=== PATIENT | female | born 1945 | race Caucasian/White ===

== ENCOUNTER 2022-09-27 12:09 | Outpatient (OUT) | payer MEDICARE, SELFPAY ==
--- NOTE | 2022-09-27 14:07 | PM.CN ---
Consult Note: HPI Data of Consult Patient: known to practice within the last 3 years Consult date: 09/27/22 Requesting Physician: James Kwong MD Primary Care Provider: Non-Staff Physician, Consult Narrative Reason for consult: Right low back pain Narrative: this is a pleasant 77-year-old female who presents for assessment. She is doing very well after her spinal cord stimulator implantation, and she reports approximately ninety percent improvement. She does continue to have some pain on the right side, but she is working with the spinal cord stimulator representatives to try to cover this area more. She continues to stay active at home. She otherwise denies adverse medication side effects or loss of bowel or bladder control. cc:: CC: James Kwong MD Review of Systems ROS Status of ROS 10 or more systems reviewed and unremarkable except as noted in history and below Exam Constitutional Common normals: no apparent distress, oriented x3 and healthy appearing Respiratory Common normals: normal respiratory effort Effort & inspection: able to speak in complete sentences Back & Pelvis Other: tenderness to palpation through the lumbar spine and paraspinal musculature. Pain is mildly elicited with flexion and extension of the lumbar spine. Coordination remains intact. Gait remains nonantalgic. Extremity Common normals: normal to inspection Neuro Common normals: oriented x3, CN's II-XII intact bilaterally and no focal motor deficits Psych Common normals: mental status grossly normal and cooperative Assessment and Plan Assessment and Plan (1) Lumbar postlaminectomy syndrome: (2) Lumbar spondylosis: (3) Lumbar stenosis with neurogenic claudication: Plan this is a pleasant 77-year-old female who presents for assessment. I am by that she is doing well after her recent lumbar spinal cord stimulator implantation. She does note some persistence of right-sided low back pain, but she had her spinal cord stimulator settings adjusted today to try to help more with his pain. We will see how these settings workout for her. Medications were reviewed, and no changes were made at this time. Her incisions are healing nicely. Her postoperative bruising has resolved entirely. She will follow-up as needed.
== END 2022-09-27 12:10 | disposition home or self-care (01) ==
LOC: PM 12:10
PROVIDERS: Visit Provider Anesthesiology
DX: M47.816 Spondylosis without myelopathy or radiculopathy, lumbar region (principal); M96.1 Postlaminectomy syndrome, not elsewhere classified; M48.062 Spinal stenosis, lumbar region with neurogenic claudication
CPT/HCPCS: G0463

== ENCOUNTER 2023-05-09 14:21 | Outpatient (OUT) | payer MEDICARE, SELFPAY ==
--- NOTE | 2023-05-09 15:10 | P.CN_ITS ---
Consult Note: HPI Data of Consult Patient: known to practice within the last 3 years Consult date: 05/09/23 Requesting Physician: James Kwong MD Primary Care Provider: Non-Staff Physician, Consult Narrative Reason for consult: right low back and leg pain Narrative: 77yof who presents for assessment. worsening right sided low back pain. has scs in place, which covers left sided pain well. was using medical marijuana, but states that she stopped since this was not helping. continues in provider directed home exercise program >6 weeks. denies adverse med side effects. cc:: CC: James Kwong MD Review of Systems ROS Status of ROS 10 or more systems reviewed and unremark able except as noted in history and below Meds Home Medications and Allergies Home Medications ?Medication ?Instructions ?Recorded ?Confirmed ?Type atorvastatin 40 mg tablet 40 mg PO DAILY 10/01/22 10/01/22 History bupropion HCl 150 mg 24 hr tablet, 150 mg PO DAILY 10/01/22 10/01/22 History extended release (Wellbutrin XL) furosemide 40 mg tablet 40 mg PO DAILY 10/01/22 10/01/22 History ibandronate 150 mg tablet mg PO .MONTHLY 10/01/22 History metformin 500 mg tablet 500 mg PO BID 10/01/22 10/01/22 History montelukast 10 mg tablet 10 mg PO DAILY 10/01/22 10/01/22 History potassium chloride 20 mEq 20 meq PO DAILY 10/01/22 10/01/22 History tablet,extended release quetiapine 400 mg tablet (Seroquel) 400 mg PO DAILY 10/01/22 10/01/22 History topiramate 50 mg tablet 50 mg PO BID 10/01/22 10/01/22 History trazodone 150 mg tablet 200 mg PO DAILY 10/01/22 10/01/22 History ziprasidone HCl 60 mg capsule 60 mg PO BID 10/01/22 10/01/22 History Allergies Allergy/AdvReac Type Severity Reaction Status Date / Time diphenhydramine Allergy Unknown Verified 09/29/22 09:15 [From Benadryl] piroxicam [From Feldene] Allergy Unknown Verified 09/29/22 09:15 pregabalin [From Lyrica] Allergy Unknown Verified 09/29/22 09:15 Exam Narrative Exam Narrative: Psych-alert and oriented x 3. Attentive and appropriate, constitutionally normal, displays normal mood and affect per situation. There are no obvious deficits in memory, reasoning, or intellect.? Skin-no obvious rashes, bruising, erythema noted to the patient's area of pain.? Extremities- extremities are warm with minimal edema and palpable pulses. Lumbar-tenderness to palpation noted in the lumbar spine and paraspinal musculature. Pain is elicited with flexion, extension, and lateral rotation of the lumbar spine. Range of motion is diminished with these motions. Facet loading maneuvers are positive. Strength-noted to be unremarkable with the exception of decreased strength rated at 4 out of 5 in right quadriceps femoris, anterior tibialis. Sensory-no notable sensory deficits in the bilateral lower extremities to touch or pinprick in all dermatomal distributions with the exception to decreased sensation to the right L3, 4 dermatomal distribution Coordination remains intact.? Gait remains non-antalgic. Assessment and Plan Assessment and Plan (1) Lumbar stenosis with neurogenic claudication: (2) Lumbar postlaminectomy syndrome: Plan 77yof who presents for assessment. failed conservative measures, as noted. given worsening symptoms, would like to update lumbar mri without contrast, which was last completed in summer. she is in agreement. meds reviewed. will order percocet 5mg tid prn. uds obtained. instructed to no longer fill the marijuana. follow up after imaging.
== END 2023-05-09 14:22 | disposition home or self-care (01) ==
PROVIDERS: Visit Provider Anesthesiology
DX: M48.062 Spinal stenosis, lumbar region with neurogenic claudication (principal); M96.1 Postlaminectomy syndrome, not elsewhere classified
CPT/HCPCS: G0463

== ENCOUNTER 2023-06-03 10:09 | Outpatient (OUT) | payer MEDICARE, SELFPAY ==
--- NOTE | 2023-06-03 | XR_ITS ---
The [address] [address] Patient Name: SHARI SIMMS MRN: [id number] date: 1945 Sex: F Assigned Patient Location: [facility] Current Patient Location: RAD Accession/Order Number: [id number] Exam Date: 06/03/2023 10:22 Report Date: 06/04/2023 10:20 At the request of: LOIS CAUSEYEDRAMARY Procedure: XR lumbar spine min 4V EXAMINATION: XR lumbar spine min 4V HISTORY: lumbar stenosis with neurogenic claudication COMPARISON: No relevant comparison available. FINDINGS: BONES: Marked right convex curvature of thoracolumbar spine. Marked anterior wedging of L1 vertebral body secondary to compression fracture. 5 mm retrolisthesis/retropulsion of inferior posterior wall of L1 secondary to marked anterior wedging. This results in reversal of normal lordotic curvature with posterior apex at the L1-L2 level. DISC SPACES: Multilevel moderate narrowing, greatest at L4-L5. PARASPINOUS: Neurostimulator pack posterior to the lower lumbar spine with electrodes entering the low thoracic central canal and extending cephalad above level of imaging. OTHER: Negative. XR/XR lumbar spine min 4V IMPRESSION: 1. Marked L1 compression fracture resulting in abnormal angulation as detailed above. 2. Multilevel moderate marked degenerative changes. No comparison studies. Electronically authenticated by: BRAYAN BAR Date: 06/04/2023 10:20
--- NOTE | 2023-06-03 10:12 | MR_ITS ---
[address] [address] Patient Name: SHARI SIMMS MRN: [id number] date: 1945 Sex: F Assigned Patient Location: [facility] Current Patient Location: Accession/Order Number: [id number] Exam Date: 06/03/2023 10:30 Report Date: 06/04/2023 10:17 At the request of: LOIS TAVERARAMARY Procedure: MR lumbar spine wo con EXAMINATION: MR lumbar spine wo con HISTORY: Lumbar Stenosis With Neurogenic Claudication ; chronic lumbar pain COMPARISON: XR lumbar spine 06/03/2023 TECHNIQUE: A variety of imaging planes and parameters were utilized for visualization of suspected pathology. FINDINGS: For the purposes of numbering, sagittal T2 image # 6 extends from the T9 vertebral body superiorly to the S3 level inferiorly. PARASPINAL AREA: Normal with no visible mass. BONES: Prominent reversal of normal lordotic curvature with posterior apex at L1-L2. Marked right convex curvature at thoracolumbar junction. Marked anterior wedging of L1 vertebral body; no marrow edema to suggest acute compression fracture. Mild retropulsion of the inferior posterior wall. CORD/CAUDA EQUINA: Normal caliber, contour, and signal intensity. DISC LEVELS: 12-L1: Early degenerative disc disease is present without focal protrusion or neural impingement. L1-L2: Mild-moderate central canal and bilateral foramen narrowing. Large posterior disc occupy complex and slight retropulsion of inferior posterior wall secondary to marked compression fracture predominantly involving anterior wedging. L2-L3: Mild central canal narrowing. Moderate left, mild right foramen narrowing. Mild diffuse disc bulging with marked disc height narrowing along left margin. L3-L4: Mild central canal narrowing. Moderate right, mild left foramen narrowing. Moderate diffuse disc bulging. Mild degenerative facet arthropathy, left greater than right. L4-L5: Mild central canal narrowing. Moderate right, mild left foramen narrowing. Moderate diffuse disc bulging with marked loss of disc height along right margin. Moderate degenerative facet arthropathy, right greater than left. L5-S1: Mild central canal narrowing. Moderate right, mild left foramen narrowing. Mild diffuse disc bulging without significant disc height reduction. Moderate degenerative facet arthropathy and suspected right pars interarticularis defect. MR/MR lumbar spine wo con IMPRESSION: 1. Chronic compression fracture of L1 with marked anterior wedging resulting in abnormal lordotic curvature and prominent posterior apex angulation at the L1-L2 level. Marked dextroscoliosis. 2. Multilevel mild central canal narrowing; moderate at L1-L2. 3. Multilevel mild/moderate foramen narrowing secondary to degenerative disc disease and facet arthropathy. Electronically authenticated by: BRAYAN BAR Date: 06/04/2023 10:17
== END 2023-06-03 10:10 | disposition home or self-care (01) ==
LOC: RAD 10:09
PROVIDERS: Visit Provider Anesthesiology
DX: M48.062 Spinal stenosis, lumbar region with neurogenic claudication (principal)
CPT/HCPCS: 72110; 72148